=== PATIENT | male | born 1955 | race African-American/Black ===

== ENCOUNTER 2020-02-19 16:43 | Emergency (ER) | payer MEDICARE, OTHER ==
[~2020-02-19] VITALS: Ht 190.5 cm; Wt 90.7 kg
[2020-02-19] MEDS ORDERED: LIDOCAINE 1% HCL (LOCAL ANESTH.) INJ 20ML MDV IJ ONE (19:45)
[2020-02-19 21:26] VITALS: BP 133/78
== END 2020-02-19 22:34 | disposition home or self-care (01) ==
LOC: ER 16:43
DX: S91.012A Laceration without foreign body, left ankle, initial encounter (principal); I10 Essential (primary) hypertension; W26.9XXA Contact with unspecified sharp object(s), initial encounter; Y93.89 Activity, other specified; Y92.89 Other specified places as the place of occurrence of the external cause; Y99.8 Other external cause status
CPT/HCPCS: 12002; 73700; 99284; J2001

== ENCOUNTER 2020-02-21 12:58 | Emergency (ER) | payer MEDICARE ==
[~2020-02-21] VITALS: Ht 190.5 cm; Wt 90.7 kg
[2020-02-21 13:03] VITALS: BP 137/83
== END 2020-02-21 14:04 | disposition home or self-care (01) ==
LOC: ER 12:58
DX: S91.012D Laceration without foreign body, left ankle, subsequent encounter (principal); X58.XXXD Exposure to other specified factors, subsequent encounter

== ENCOUNTER 2020-02-29 10:03 | Emergency (ER) | payer MEDICARE ==
[~2020-02-29] VITALS: Ht 190.5 cm; Wt 90.7 kg
[2020-02-29 11:12] VITALS: BP 147/86
== END 2020-02-29 11:18 | disposition home or self-care (01) ==
LOC: ER 10:03
DX: S91.312D Laceration without foreign body, left foot, subsequent encounter (principal); I10 Essential (primary) hypertension; X58.XXXD Exposure to other specified factors, subsequent encounter

== ENCOUNTER 2020-03-07 08:36 | Emergency (ER) | payer MEDICARE ==
[~2020-03-07] VITALS: Ht 190.5 cm; Wt 90.7 kg
[2020-03-07 08:51] VITALS: BP 125/78
== END 2020-03-07 09:10 | disposition home or self-care (01) ==
LOC: ER 08:36
DX: S91.312A Laceration without foreign body, left foot, initial encounter (principal); X58.XXXA Exposure to other specified factors, initial encounter; Y93.89 Activity, other specified; Y92.89 Other specified places as the place of occurrence of the external cause; Y99.8 Other external cause status
CPT/HCPCS: 99281; J7030

== ENCOUNTER 2020-07-29 14:01 | Inpatient (IN) | payer MEDICARE, OTHER ==
[~2020-07-29] VITALS: Ht 190.5 cm; Wt 82.1 kg
[2020-07-29 15:03] LABS: Basophils # (auto) 0 10 ^3/uL (0-0.2); Basophils % (auto) 0.4 % (0.0-2.0); Eosinophils # (auto) 0.2 10 ^3/uL (0-0.8); Eosinophils % (auto) 2.8 % (0.0-7.0); Hematocrit 38.6 % (41.0-53.0); Hemoglobin 12.8 g/dL (13.5-17.5); Lymphocytes # (auto) 1.9 10 ^3/uL (0.4-5.4); Lymphocytes % (auto) 30.1 % (10.0-50.0); Mean Corpuscular Hgb Conc. 33.1 g/dL (32.0-36.0); Mean Corpuscular Volume 84.6 fL (80.0-100.0); Monocytes # (auto) 0.7 10 ^3/uL (0-1.3); Monocytes % (auto) 11.2 % (0.0-12.0); Neutrophils # (auto) 3.5 10 ^3/uL (1.6-8.6); Neutrophils % (auto) 55.5 % (37.0-80.0); Nucleated Red Blood Cells % 0.1 %; Platelet Count (auto) 237 10^3/uL (140-450); Red Blood Cells 4.57 10^6/uL (4.5-5.90); Red Cell Distribution Width 17.5 % (11.8-14.3); White Blood Cell 6.4 10^3/uL (4.4-10.8)
[2020-07-29 15:27] LABS: BUN/Creatinine Ratio 15.9; Calcium 8.4 mg/dL (8.5-10.1); Potassium 4.2 mmol/L (3.5-5.1)
[2020-07-29 15:30] LABS: Urine Bacteria NONE SEEN /hpf (None Seen); Urine Blood Negative /uL (Negative); Urine WBC 1 /hpf (0 - 3)
[2020-07-29 15:32] LABS: Bilirubin, Total 0.5 mg/dL (0.2-1.0)
[2020-07-29] MEDS ORDERED: FUROSEMIDE 20 MG/2 ML VIAL IV ONE (16:15)
[2020-07-29] MEDS ORDERED: ASPirin 81 mg TAB PO ONE (16:15)
[2020-07-29] MEDS ORDERED: ENOXAPARIN SOD 100 MG/1 ML SYRINGE SC ONE (16:15)
[2020-07-29] MEDS ORDERED: HYDROcodone-ACET 5/325MG TAB PO PRN (19:15)
[2020-07-29] MEDS ORDERED: NITROGLYCERIN 0.4 MG SL TAB SL PRN (19:15)
[2020-07-29] MEDS ORDERED: MORPHINE SULF INJ 2 MG/ML SYRINGE 1ML IV PRN ×2 (19:15)
[2020-07-29] MEDS ORDERED: ONDANSETRON HCL 4 MG/2 ML VIAL IV PRN (19:15)
[2020-07-29 20:59] LABS: Cholesterol 107 mg/dL (< 200)
[2020-07-29 21:02] LABS: HDL Cholesterol 34 mg/dL (40-59); LDL Cholesterol 70 mg/dL (< 100); Triglycerides 44 mg/dL (< 150)
[2020-07-29] MEDS: ATORVASTATIN 20 MG TAB PO SCH (22:22)
[2020-07-29] MEDS: METOPROLOL TARTRATE 25 MG TAB PO SCH (22:23)
[2020-07-30 07:45] LABS: BUN/Creatinine Ratio 16.5; Calcium 8.8 mg/dL (8.5-10.1); Potassium 3.9 mmol/L (3.5-5.1)
[2020-07-30] MEDS ORDERED: FUROSEMIDE 40 MG/4 ML VIAL IV SCH (10:00)
[2020-07-30] MEDS: ASPirin 81 mg TAB PO SCH (10:07)
[2020-07-30] MEDS: METOPROLOL TARTRATE 25 MG TAB PO SCH ×2 (10:08→22:09)
[2020-07-30] MEDS: PANTOPRAZOLE 40 MG TAB PO SCH (10:08)
[2020-07-30 11:05] LABS: INR 1.4 (0.9-1.15); Partial Thromboplastin Time 29.2 sec (23.0-31.2)
[2020-07-30 17:00] VITALS: BP 122/68
[2020-07-30] MEDS: FUROSEMIDE 40 MG/4 ML VIAL IV SCH (18:10)
[2020-07-30] MEDS ORDERED: METO25TA5 PO (19:11)
[2020-07-30] MEDS ORDERED: ASCO500C49 PO (19:11)
[2020-07-30] MEDS ORDERED: ATOR20TA PO (19:11)
[2020-07-30] MEDS ORDERED: ASPI-543 PO (19:11)
[2020-07-30 22:00] VITALS: BP 130/78
[2020-07-30] MEDS: ATORVASTATIN 20 MG TAB PO SCH (22:07)
[2020-07-31 05:00] VITALS: BP 136/73
[2020-07-31] MEDS: FUROSEMIDE 40 MG/4 ML VIAL IV SCH ×2 (05:30→17:04)
[2020-07-31 06:39] LABS: Calcium 8.9 mg/dL (8.5-10.1); Potassium 3.6 mmol/L (3.5-5.1)
[2020-07-31 06:42] LABS: BUN/Creatinine Ratio 18.9
[2020-07-31] MEDS: ASPirin 81 mg TAB PO SCH (09:47)
[2020-07-31] MEDS: METOPROLOL TARTRATE 25 MG TAB PO SCH ×3 (09:48→21:06)
[2020-07-31] MEDS: PANTOPRAZOLE 40 MG TAB PO SCH (09:49)
[2020-07-31] MEDS: ENOXAPARIN SOD 40 MG/0.4 ML SYRINGE SC SCH (10:00)
[2020-07-31] MEDS ORDERED: IOHEXOL 350 MG/ML 100ML IJ ONE ×2 (12:49→14:52)
[2020-07-31] MEDS ORDERED: LIDOCAINE 2%HCL (LOCAL ANESTH.) INJ 20ML MDV ONE (12:49)
[2020-07-31] MEDS ORDERED: fentaNYL CITRATE 100 MCG/2 ML VL ONE (13:39)
[2020-07-31] MEDS ORDERED: ANGIOMAX 250 MG VIAL IV ONE (13:39)
[2020-07-31] MEDS ORDERED: SODIUM CHL 0.9% 50 ML ONE (13:40)
[2020-07-31] MEDS ORDERED: MIDAZOLAM HCL 1MG/1ML-2 ML VIAL ONE ×2 (13:40→14:47)
[2020-07-31] MEDS ORDERED: TICAGRELOR 90 MG TAB ONE (15:14)
[2020-07-31 16:50] VITALS: BP 158/111
[2020-07-31 17:10] VITALS: BP 154/93
[2020-07-31 17:40] VITALS: BP 154/100
[2020-07-31] MEDS: SACUBITRIL-VALSARTAN 24mg/26mg TAB PO SCH (21:05)
[2020-07-31] MEDS: ATORVASTATIN 20 MG TAB PO SCH (21:05)
[2020-07-31] MEDS: TICAGRELOR 90 MG TAB PO SCH (21:17)
[2020-08-01] VITALS: BP 119/79
[2020-08-01 01:00] VITALS: BP 114/76
[2020-08-01 05:00] VITALS: BP 130/78
[2020-08-01] MEDS: FUROSEMIDE 40 MG/4 ML VIAL IV SCH ×2 (05:53→18:00)
[2020-08-01 08:00] VITALS: BP 104/71
[2020-08-01 08:00] LABS: Basophils # (auto) 0 10 ^3/uL (0-0.2); Basophils % (auto) 0.4 % (0.0-2.0); Eosinophils # (auto) 0.2 10 ^3/uL (0-0.8); Eosinophils % (auto) 2.4 % (0.0-7.0); Hematocrit 45.1 % (41.0-53.0); Hemoglobin 15.5 g/dL (13.5-17.5); Lymphocytes # (auto) 2.3 10 ^3/uL (0.4-5.4); Lymphocytes % (auto) 29.9 % (10.0-50.0); Mean Corpuscular Hemoglobin 28.8 pg (28.0-32.0); Mean Corpuscular Hgb Conc. 34.3 g/dL (32.0-36.0); Mean Corpuscular Volume 83.9 fL (80.0-100.0); Monocytes % (auto) 12.9 % (0.0-12.0); Neutrophils # (auto) 4.3 10 ^3/uL (1.6-8.6); Neutrophils % (auto) 54.4 % (37.0-80.0); Nucleated Red Blood Cells % 0.1 %; Platelet Count (auto) 294 10^3/uL (140-450); Red Blood Cells 5.38 10^6/uL (4.5-5.90); Red Cell Distribution Width 17.1 % (11.8-14.3); White Blood Cell 7.9 10^3/uL (4.4-10.8)
[2020-08-01 08:14] LABS: BUN/Creatinine Ratio 18.2; Calcium 8.7 mg/dL (8.5-10.1); Potassium 3.3 mmol/L (3.5-5.1)
[2020-08-01] MEDS ORDERED: POTASSIUM CHL 20 Meq TABLET PO ONE (08:45)
[2020-08-01] MEDS ORDERED: POLYETHYLENE GLYCOL 17 GM PWDR PO SCH (10:00)
[2020-08-01] MEDS: PANTOPRAZOLE 40 MG TAB PO SCH (10:22)
[2020-08-01] MEDS: SACUBITRIL-VALSARTAN 24mg/26mg TAB PO SCH (10:22)
[2020-08-01] MEDS: TICAGRELOR 90 MG TAB PO SCH (10:22)
[2020-08-01] MEDS: METOPROLOL TARTRATE 25 MG TAB PO SCH (10:23)
[2020-08-01] MEDS: ASPirin 81 mg TAB PO SCH (10:23)
[2020-08-01] MEDS: ENOXAPARIN SOD 40 MG/0.4 ML SYRINGE SC SCH (10:23)
[2020-08-01 16:00] VITALS: BP 103/63
[2020-08-01 16:17] VITALS: BP 156/96
== END 2020-08-01 18:00 | disposition home or self-care (01) | DRG 246 ==
LOC: ER 14:01 → TELE 14:02 → TELE-EAST 07-30 18:34
PROVIDERS: ADMIT Nurse Practitioner Acute Care; ATTEND Internal Medicine
PROC: 4A023N6 Measurement of Cardiac Sampling and Pressure, Right Heart, Percutaneous Approach (ICD-10-PCS; principal; 2020-07-31)
PROC: 027135Z Dilation of Coronary Artery, Two Arteries with Two Drug-eluting Intraluminal Devices, Percutaneous Approach (ICD-10-PCS; 2020-07-31)
PROC: B2111ZZ Fluoroscopy of Multiple Coronary Arteries using Low Osmolar Contrast (ICD-10-PCS; 2020-07-31)
PROC: B2141ZZ Fluoroscopy of Right Heart using Low Osmolar Contrast (ICD-10-PCS; 2020-07-31)
DX: I21.4 Non-ST elevation (NSTEMI) myocardial infarction (principal); I50.43 Acute on chronic combined systolic (congestive) and diastolic (congestive) heart failure; E44.0 Moderate protein-calorie malnutrition; I13.0 Hypertensive heart and chronic kidney disease with heart failure and stage 1 through stage 4 chronic kidney disease, or unspecified chronic kidney disease; N18.30 Chronic kidney disease, stage 3 unspecified; E78.5 Hyperlipidemia, unspecified; I25.5 Ischemic cardiomyopathy; Z98.61 Coronary angioplasty status; Z68.22 Body mass index [BMI] 22.0-22.9, adult; Z20.822 Contact with and (suspected) exposure to COVID-19
CPT/HCPCS: 36415; 71045; 80048; 80053; 80061; 81001; 82306; 83036; 83880; 84443; 84484; 85025; 85610; 85730; 87426; 93005; 93306; 93971; 96374; 96375; 99152; 99153; C1751; C1874; C1887; G0378; J2250

== ENCOUNTER 2020-08-15 11:15 | Emergency (ER) | payer OTHER ==
[~2020-08-15] VITALS: Ht 190.5 cm; Wt 86.6 kg
[~2020-08-15 11:15] MED LIST: ASCO500C49 PO; ASPI-543 PO; ATOR20TA PO; METO25TA5 PO
[2020-08-15 11:54] LABS: Basophils # (auto) 0 10 ^3/uL (0-0.2); Basophils % (auto) 0.7 % (0.0-2.0); Eosinophils # (auto) 0.3 10 ^3/uL (0-0.8); Eosinophils % (auto) 4.1 % (0.0-7.0); Hemoglobin 14.5 g/dL (13.5-17.5); Lymphocytes # (auto) 2.4 10 ^3/uL (0.4-5.4); Lymphocytes % (auto) 37.1 % (10.0-50.0); Mean Corpuscular Hemoglobin 27.9 pg (28.0-32.0); Mean Corpuscular Volume 84.6 fL (80.0-100.0); Monocytes # (auto) 0.6 10 ^3/uL (0-1.3); Monocytes % (auto) 8.9 % (0.0-12.0); Neutrophils # (auto) 3.2 10 ^3/uL (1.6-8.6); Neutrophils % (auto) 49.2 % (37.0-80.0); Nucleated Red Blood Cells % 0.2 %; Platelet Count (auto) 245 10^3/uL (140-450); Red Cell Distribution Width 16.4 % (11.8-14.3); White Blood Cell 6.6 10^3/uL (4.4-10.8)
[2020-08-15 12:10] LABS: INR 1.29 (0.9-1.15); Partial Thromboplastin Time 26.7 sec (23.0-31.2)
[2020-08-15 12:13] LABS: Albumin 3.4 g/dL (3.4-5.0); Calcium 9.2 mg/dL (8.5-10.1); Potassium 4.2 mmol/L (3.5-5.1)
[2020-08-15 12:21] LABS: BUN/Creatinine Ratio 14.6; Bilirubin, Total 0.4 mg/dL (0.2-1.0); Total Protein 8.2 g/dL (6.4-8.2)
[2020-08-15 13:02] VITALS: BP 157/97
== END 2020-08-15 13:03 | disposition home or self-care (01) ==
LOC: ER 11:15
DX: R04.0 Epistaxis (principal); I10 Essential (primary) hypertension; Z79.82 Long term (current) use of aspirin
CPT/HCPCS: 30901; 36415; 71045; 80053; 84484; 85025; 85610; 85730

== ENCOUNTER → 2020-10-24 | Outpatient (CLI) | payer OTHER | END | disposition home or self-care (01) | LOC: Rad HDHVI 11:01 | PROVIDERS: ATTEND Internal Medicine Cardiovascular Disease | DX: I65.21 Occlusion and stenosis of right carotid artery (principal); I10 Essential (primary) hypertension; E78.5 Hyperlipidemia, unspecified | CPT/HCPCS: 93880 ==

== ENCOUNTER → 2020-10-28 | Outpatient (CLI) | payer OTHER ==
[2020-10-28 12:05] LABS: Urine Blood 1+ /uL (Negative); Urine Specific Gravity 1.024 (1.001-1.035)
[2020-10-28 12:09] LABS: Basophils # (auto) 0 10 ^3/uL (0-0.2); Eosinophils # (auto) 0.1 10 ^3/uL (0-0.8); Hemoglobin 13.6 g/dL (13.5-17.5); Monocytes # (auto) 0.6 10 ^3/uL (0-1.3); Platelet Count (auto) 247 10^3/uL (140-450)
[2020-10-28 12:12] LABS: Basophils % (auto) 0.6 % (0.0-2.0); Eosinophils % (auto) 2.1 % (0.0-7.0); Hematocrit 40.7 % (41.0-53.0); Lymphocytes % (auto) 18.8 % (10.0-50.0); Mean Corpuscular Hemoglobin 27.1 pg (28.0-32.0); Mean Corpuscular Hgb Conc. 33.3 g/dL (32.0-36.0); Mean Corpuscular Volume 81.1 fL (80.0-100.0); Monocytes % (auto) 11.1 % (0.0-12.0); Neutrophils # (auto) 3.6 10 ^3/uL (1.6-8.6); Neutrophils % (auto) 67.4 % (37.0-80.0); Nucleated Red Blood Cells % 0.1 %; Red Blood Cells 5.02 10^6/uL (4.5-5.90); Red Cell Distribution Width 15.2 % (11.8-14.3); White Blood Cell 5.4 10^3/uL (4.4-10.8)
[2020-10-28 12:30] LABS: Free T4 (Free Thyroxine) 1.55 ng/dL (0.89-1.76)
[2020-10-28 12:31] LABS: Prostate Specific Antigen 0.75 ng/mL (0.0-4.0)
[2020-10-28 12:37] LABS: Albumin 3.5 g/dL (3.4-5.0); BUN/Creatinine Ratio 14.1; Bilirubin, Total 1.2 mg/dL (0.2-1.0); Calcium 8.9 mg/dL (8.5-10.1); Total Protein 8.4 g/dL (6.4-8.2)
== END | disposition home or self-care (01) ==
LOC: LAB 08:14
PROVIDERS: ATTEND Internal Medicine Cardiovascular Disease
DX: C61 Malignant neoplasm of prostate (principal); I10 Essential (primary) hypertension; E11.9 Type 2 diabetes mellitus without complications; D51.3 Other dietary vitamin B12 deficiency anemia; D64.9 Anemia, unspecified; E55.9 Vitamin D deficiency, unspecified; R00.2 Palpitations; R53.1 Weakness; R30.0 Dysuria
CPT/HCPCS: 36415; 80053; 80061; 81003; 82306; 82607; 83036; 84153; 84403; 84439; 84443; 85025

== ENCOUNTER → 2020-11-06 | Outpatient (CLI) | payer OTHER ==
[~2020-11-06] VITALS: Ht 190.5 cm; Wt 81.6 kg
== END | disposition home or self-care (01) ==
LOC: Rad HDHVI 08:56
PROVIDERS: ATTEND Internal Medicine Cardiovascular Disease
DX: I11.0 Hypertensive heart disease with heart failure (principal); I50.23 Acute on chronic systolic (congestive) heart failure; I25.10 Atherosclerotic heart disease of native coronary artery without angina pectoris; I25.5 Ischemic cardiomyopathy; E78.5 Hyperlipidemia, unspecified
CPT/HCPCS: 78452; 93017; 96374; A9500

== ENCOUNTER → 2020-11-13 | Outpatient (CLI) | payer OTHER | END | disposition home or self-care (01) | LOC: XYW 09:49 | PROVIDERS: ATTEND Internal Medicine | DX: I08.2 Rheumatic disorders of both aortic and tricuspid valves (principal); I50.22 Chronic systolic (congestive) heart failure; Z95.5 Presence of coronary angioplasty implant and graft | CPT/HCPCS: 93306 ==

== ENCOUNTER 2020-12-11 13:40 | Emergency (ER) | payer OTHER ==
[~2020-12-11] VITALS: Ht 190.5 cm; Wt 81.6 kg
[2020-12-11 14:09] VITALS: BP 141/88
[2020-12-11] MEDS ORDERED: methylPREDNISolone SOD SUCC 125 MG/2 ML VL IM ONE (15:45)
[2020-12-11] MEDS ORDERED: KETOROLAC TROMETH 60MG/2ML VIAL IM ONE (15:45)
== END 2020-12-11 16:31 | disposition home or self-care (01) ==
LOC: ER 13:40
DX: M17.11 Unilateral primary osteoarthritis, right knee (principal); M06.831 Other specified rheumatoid arthritis, right wrist; I10 Essential (primary) hypertension; Z95.1 Presence of aortocoronary bypass graft; Z86.73 Personal history of transient ischemic attack (TIA), and cerebral infarction without residual deficits
CPT/HCPCS: 73110; 73562; 96372; 99284; J1885; J2930

== ENCOUNTER → 2021-06-04 | Outpatient (CLI) | payer OTHER | END | disposition home or self-care (01) | LOC: XY 08:54 | PROVIDERS: ATTEND Internal Medicine | DX: I65.23 Occlusion and stenosis of bilateral carotid arteries (principal); Z95.5 Presence of coronary angioplasty implant and graft | CPT/HCPCS: 93886 ==

== ENCOUNTER → 2021-10-26 | Outpatient (CLI) | payer OTHER | END | disposition home or self-care (01) | LOC: Rad HDHVI 14:03 | PROVIDERS: ATTEND Internal Medicine Cardiovascular Disease | DX: I65.22 Occlusion and stenosis of left carotid artery (principal); I25.5 Ischemic cardiomyopathy; I10 Essential (primary) hypertension | CPT/HCPCS: 93880 ==

== ENCOUNTER → 2021-11-04 | Outpatient (CLI) | payer OTHER ==
[~2021-11-04] VITALS: Ht 190.5 cm; Wt 81.6 kg
== END | disposition home or self-care (01) ==
LOC: Rad HDHVI 13:44
PROVIDERS: ATTEND Internal Medicine Cardiovascular Disease
DX: I25.10 Atherosclerotic heart disease of native coronary artery without angina pectoris (principal); R06.02 Shortness of breath; I48.0 Paroxysmal atrial fibrillation; I11.0 Hypertensive heart disease with heart failure; I50.22 Chronic systolic (congestive) heart failure; E78.2 Mixed hyperlipidemia; I25.5 Ischemic cardiomyopathy
CPT/HCPCS: 78452; 93017; 96374; A9500

== ENCOUNTER 2022-02-16 13:00 | Outpatient (CLI) | payer OTHER, MEDICAID ==
[~2022-02-16] VITALS: Ht 190.5 cm; Wt 83.9 kg
[~2022-02-16 13:00] MED LIST changes: -APIX2.5T PO; -FURO1TAB31 PO; -METO-535 PO; -PANT40T PO; -SACU1TAB PO
[2022-02-16] MEDS ORDERED: METO-535 PO (13:53)
[2022-02-16] MEDS ORDERED: APIX2.5T PO (13:53)
[2022-02-16] MEDS ORDERED: PANT40T PO (13:53)
[2022-02-16] MEDS ORDERED: SACU1TAB PO (13:53)
[2022-02-16] MEDS ORDERED: FURO1TAB31 PO (13:53)
== END 2022-02-16 13:35 | disposition home or self-care (01) ==
LOC: LAB 13:00 → EDSTATUS 02-18 14:30
PROVIDERS: ATTEND Internal Medicine Cardiovascular Disease
DX: Z20.822 Contact with and (suspected) exposure to COVID-19 (principal)

== ENCOUNTER → 2022-02-16 | Outpatient (CLI) | payer OTHER ==
[~2022-02-16] MED LIST changes: +APIX2.5T PO; +FURO1TAB31 PO; +METO-535 PO; +PANT40T PO; +SACU1TAB PO
[2022-02-16 11:24] VITALS: BP 126/72
[2022-02-16 11:44] VITALS: BP 128/75
[2022-02-16 16:34] LABS: BUN/Creatinine Ratio 12.4; Calcium 8.5 mg/dL (8.5-10.1); Potassium 3.6 mmol/L (3.5-5.1)
[2022-02-16 16:47] LABS: Basophils # (auto) 0 10 ^3/uL (0-0.2); Eosinophils # (auto) 0.2 10 ^3/uL (0-0.8); Mean Corpuscular Hemoglobin 26.3 pg (28.0-32.0); Monocytes # (auto) 0.7 10 ^3/uL (0-1.3); Red Blood Cells 3.98 10^6/uL (4.5-5.90); White Blood Cell 7.3 10^3/uL (4.4-10.8)
[2022-02-16 16:51] LABS: Basophils % (auto) 0.5 % (0.0-2.0); Eosinophils % (auto) 2.7 % (0.0-7.0); Hematocrit 32.6 % (41.0-53.0); Hemoglobin 10.4 g/dL (13.5-17.5); Lymphocytes % (auto) 27.4 % (10.0-50.0); Mean Corpuscular Volume 82.1 fL (80.0-100.0); Monocytes % (auto) 9.4 % (0.0-12.0); Neutrophils # (auto) 4.4 10 ^3/uL (1.6-8.6); Nucleated Red Blood Cells % 0.1 %; Red Cell Distribution Width 14.8 % (11.8-14.3)
[2022-02-16 17:03] LABS: INR 1.23 (0.9-1.15); Partial Thromboplastin Time 30.3 sec (24.6-33.4)
== END | disposition home or self-care (01) ==
LOC: Rad HDHVI 11:03
PROVIDERS: ATTEND Internal Medicine Cardiovascular Disease
DX: Z01.812 Encounter for preprocedural laboratory examination (principal); M47.814 Spondylosis without myelopathy or radiculopathy, thoracic region; R79.1 Abnormal coagulation profile; I25.10 Atherosclerotic heart disease of native coronary artery without angina pectoris; I10 Essential (primary) hypertension; I70.0 Atherosclerosis of aorta
CPT/HCPCS: 36415; 71046; 80048; 85025; 85610; 85730; 93005; G0463

== ENCOUNTER → 2022-05-11 | Outpatient (CLI) | payer OTHER ==
[~2022-05-11] MED LIST changes: +APIX2.5T PO; -ASPI-543 PO; -ATOR20TA PO; +FURO1TAB31 PO; +METO-535 PO; -METO25TA5 PO; +PANT40T PO; +SACU1TAB PO
[2022-05-11 13:00] LABS: Eosinophils # (auto) 0.2 10 ^3/uL (0-0.8); Hemoglobin 12.4 g/dL (13.5-17.5); Neutrophils # (auto) 3.5 10 ^3/uL (1.6-8.6)
[2022-05-11 13:02] LABS: Basophils # (auto) 0 10 ^3/uL (0-0.2); Basophils % (auto) 0.6 % (0.0-2.0); Hematocrit 39.6 % (41.0-53.0); Lymphocytes # (auto) 1.5 10 ^3/uL (0.4-5.4); Mean Corpuscular Hemoglobin 24.5 pg (28.0-32.0); Mean Corpuscular Hgb Conc. 31.2 g/dL (32.0-36.0); Mean Corpuscular Volume 78.7 fL (80.0-100.0); Monocytes # (auto) 0.7 10 ^3/uL (0-1.3); Monocytes % (auto) 11.2 % (0.0-12.0); Neutrophils % (auto) 59.2 % (37.0-80.0); Nucleated Red Blood Cells % 0.1 %; Red Blood Cells 5.03 10^6/uL (4.5-5.90); Red Cell Distribution Width 17.9 % (11.8-14.3); Urine Blood 2+ /uL (Negative); Urine Specific Gravity 1.031 (1.001-1.035)
[2022-05-11 13:32] LABS: Free T4 (Free Thyroxine) 1.57 ng/dL (0.89-1.76)
[2022-05-11 13:33] LABS: Albumin 3.4 g/dL (3.4-5.0); BUN/Creatinine Ratio 12.7; Bilirubin, Total 0.7 mg/dL (0.2-1.0); Calcium 8.6 mg/dL (8.5-10.1); Potassium 4.1 mmol/L (3.5-5.1); Prostate Specific Antigen 1.15 ng/mL (0.0-4.0); Total Protein 7.1 g/dL (6.4-8.2)
== END | disposition home or self-care (01) ==
LOC: LAB 08:32
PROVIDERS: ATTEND Internal Medicine Cardiovascular Disease
DX: C61 Malignant neoplasm of prostate (principal); D51.3 Other dietary vitamin B12 deficiency anemia; R00.2 Palpitations; E55.9 Vitamin D deficiency, unspecified; E11.9 Type 2 diabetes mellitus without complications; I10 Essential (primary) hypertension; R53.1 Weakness; R30.0 Dysuria
CPT/HCPCS: 36415; 80053; 80061; 81003; 82306; 82607; 83036; 84153; 84403; 84439; 84443; 85025

== ENCOUNTER → 2022-09-15 | Outpatient (CLI) | payer MEDICARE, MEDICAID | END | disposition home or self-care (01) | LOC: Rad HDHVI 10:07 | PROVIDERS: ATTEND Internal Medicine Cardiovascular Disease | DX: I08.8 Other rheumatic multiple valve diseases (principal); R06.02 Shortness of breath; I10 Essential (primary) hypertension | CPT/HCPCS: 93306 ==

== ENCOUNTER 2023-02-08 12:24 | Emergency (ER) | payer MEDICARE, MEDICAID ==
[~2023-02-08] VITALS: Ht 190.5 cm; Wt 86.1 kg
[2023-02-08 14:50] LABS: Basophils # (auto) 0 10 ^3/uL (0-0.2); Basophils % (auto) 0.6 % (0.0-2.0); Eosinophils # (auto) 0.2 10 ^3/uL (0-0.8); Eosinophils % (auto) 3.1 % (0.0-7.0); Hematocrit 40.7 % (41.0-53.0); Hemoglobin 13.4 g/dL (13.5-17.5); Lymphocytes # (auto) 2.5 10 ^3/uL (0.4-5.4); Lymphocytes % (auto) 43.2 % (10.0-50.0); Mean Corpuscular Hgb Conc. 32.9 g/dL (32.0-36.0); Monocytes # (auto) 0.6 10 ^3/uL (0-1.3); Monocytes % (auto) 10.7 % (0.0-12.0); Neutrophils # (auto) 2.5 10 ^3/uL (1.6-8.6); Neutrophils % (auto) 42.4 % (37.0-80.0); Nucleated Red Blood Cells % 0.2 %; Red Blood Cells 4.97 10^6/uL (4.5-5.90); Red Cell Distribution Width 15.1 % (11.8-14.3); White Blood Cell 5.9 10^3/uL (4.4-10.8)
[2023-02-08 14:53] LABS: Urine WBC None Seen /hpf (0 - 3)
[2023-02-08 15:11] LABS: Albumin 4.2 g/dL (3.2-4.8); Alkaline Phosphatase 97 U/L (46-116); Anion Gap 5.7 (5-15); Aspartate Aminotransferase < 8 U/L (13-40); Blood Urea Nitrogen 15 mg/dL (9-23); CRP High Sensitivity 0.81 mg/dL (<1.0); Calcium 8.9 mg/dL (8.5-10.1); Carbon Dioxide 28.3 mmol/L (20-30); Chloride 108 mmol/L (98-107); Glucose 79 mg/dL (74-106); Potassium 3.9 mmol/L (3.5-5.1); Sodium 142 mmol/L (136-145)
[2023-02-08 15:12] LABS: Bilirubin, Total 0.4 mg/dL (0.2-1.0); Total Protein 7.3 g/dL (5.7-8.2)
[2023-02-08 15:15] LABS: Urine Bacteria NONE SEEN /hpf (None Seen); Urine Blood TRACE /uL (Negative); Urine Clarity Clear (Clear); Urine Color Colorless (Yellow); Urine Hyaline Cast FEW /lpf (0 - 2); Urine Protein, UAD Negative (Negative); Urine Urobilinogen Normal (Negative)
[2023-02-08 15:31] LABS: Alanine Aminotransferase < 9 U/L (7-40)
[2023-02-08 16:37] LABS: Erythrocyte Sedimentation Rate 18 mm/hr (0-20)
[2023-02-08] MEDS ORDERED: CEPH500C PO (20:34)
[2023-02-08 22:12] VITALS: BP 157/88; PULSE 67; RESP 18; TEMP 98.6; O2SAT 97
== END 2023-02-08 22:13 | disposition home or self-care (01) ==
LOC: ER 12:24
DX: M25.572 Pain in left ankle and joints of left foot (principal); I10 Essential (primary) hypertension; I25.10 Atherosclerotic heart disease of native coronary artery without angina pectoris; Z86.73 Personal history of transient ischemic attack (TIA), and cerebral infarction without residual deficits; Z95.1 Presence of aortocoronary bypass graft; Z79.899 Other long term (current) drug therapy
CPT/HCPCS: 36415; 73701; 80053; 81001; 83605; 83880; 84484; 85025; 85652; 86141; 93971; 99285; Q9967

== ENCOUNTER 2023-09-18 11:50 | Inpatient (IN) | payer OTHER, MEDICAID ==
[~2023-09-18] VITALS: Ht 190.5 cm; Wt 88.1 kg
[~2023-09-18 11:50] MED LIST changes: +CEPH500C PO
[2023-09-18 12:18] VITALS: PULSE 161; RESP 20; O2SAT 98
[2023-09-18] MEDS: ADENOSINE 6 MG/2 ML INJ IV ONE (12:21)
[2023-09-18 12:25] LABS: Basophils # (auto) 0 10 ^3/uL (0-0.2); Eosinophils # (auto) 0.1 10 ^3/uL (0-0.8); Mean Corpuscular Hemoglobin 26.1 pg (28.0-32.0); Mean Corpuscular Hgb Conc. 32.1 g/dL (32.0-36.0); Monocytes # (auto) 0.5 10 ^3/uL (0-1.3); White Blood Cell 5.9 10^3/uL (4.4-10.8)
[2023-09-18] MEDS: SODIUM CHLORIDE 0.9% 500 ML IVB ONE (12:25)
[2023-09-18] MEDS: ONDANSETRON HCL 4 MG/2 ML VIAL IV ONE (12:25)
[2023-09-18 12:27] LABS: Basophils % (auto) 0.7 % (0.0-2.0); Eosinophils % (auto) 1.7 % (0.0-7.0); Hematocrit 41.4 % (41.0-53.0); Hemoglobin 13.3 g/dL (13.5-17.5); Lymphocytes # (auto) 1.8 10 ^3/uL (0.4-5.4); Lymphocytes % (auto) 30.3 % (10.0-50.0); Mean Corpuscular Volume 81.4 fL (80.0-100.0); Monocytes % (auto) 8.9 % (0.0-12.0); Neutrophils # (auto) 3.4 10 ^3/uL (1.6-8.6); Neutrophils % (auto) 58.4 % (37.0-80.0); Nucleated Red Blood Cells % 0.1 %; Red Blood Cells 5.09 10^6/uL (4.5-5.90); Red Cell Distribution Width 15.2 % (11.8-14.3)
[2023-09-18] MEDS: MIDAZOLAM HCL 5 MG/ML-1ML VIAL IV ONE (12:28)
[2023-09-18] MEDS: MIDAZOLAM HCL 5 MG/ML-1ML VIAL ONE (12:39)
[2023-09-18] MEDS: ENOXAPARIN SOD 100 MG/1 ML SYRINGE SC ONE (12:44)
[2023-09-18 12:49] LABS: Alanine Aminotransferase 14 U/L (7-40); Albumin 4.1 g/dL (3.2-4.8); Alkaline Phosphatase 104 U/L (46-116); Anion Gap 11 (5-15); Aspartate Aminotransferase 15 U/L (13-40); BUN/Creatinine Ratio 14.6 (10.0-20.0); Bilirubin, Total 0.8 mg/dL (0.2-1.0); Blood Urea Nitrogen 13 mg/dL (9-23); Calcium 9.2 mg/dL (8.7-10.4); Carbon Dioxide 23 mmol/L (20-30); Chloride 111 mmol/L (98-107); Glucose 77 mg/dL (74-106); Lipase 33 U/L (12-53); Potassium 3.6 mmol/L (3.5-5.1); Sodium 145 mmol/L (136-145)
[2023-09-18 12:50] LABS: Total Protein 7.7 g/dL (5.7-8.2)
[2023-09-18] MEDS: dilTIAZem 120MG ER CAP PO ONE (13:03)
[2023-09-18] MEDS: dilTIAZem 25 MG/5 ML VIAL IV ONE (13:06)
[2023-09-18] MEDS ORDERED: ACETAMINOPHEN 325 MG TAB PO PRN (13:30)
[2023-09-18] MEDS ORDERED: NITROGLYCERIN 0.4 MG SL TAB SL PRN (13:30)
[2023-09-18] MEDS ORDERED: MORPHINE SULFATE 4 MG/ML SYR/VIAL IV PRN (13:30)
[2023-09-18 13:53] LABS: INR 1.46 (0.9-1.15)
[2023-09-18] MEDS: dilTIAZem 125mg/125ml BAG KIT 125 ML IV ONE (15:01)
[2023-09-18 15:39] LABS: INR 1.58 (0.9-1.15); Prothrombin Time 16.1 sec (9.3-11.8)
[2023-09-18] MEDS: SODIUM CHLORIDE 0.9% 1,000 ML IV ONE (16:54)
[2023-09-18 17:17] LABS: Urine Bacteria NONE SEEN /hpf (None Seen); Urine Blood 2+ /uL (Negative); Urine Clarity Clear (Clear); Urine Color Yellow (Yellow); Urine Mucus FEW (None Seen); Urine Protein, UAD 1+ (Negative); Urine Specific Gravity 1.022 (1.001-1.035); Urine WBC 1 /hpf (0 - 3)
[2023-09-18 17:26] LABS: Amphetamine Screen, Urine Neg (NEGATIVE); Barbiturate Scree,Urine Neg (NEGATIVE); Benzodiazephine Screen, Urine Pos (NEGATIVE); Cannabinoid Screen, Urine Neg (NEGATIVE); Cocaine Screen, Urine Neg (NEGATIVE); Opiate Scree,Urine Neg (NEGATIVE); Phencyclidine Screen, Urine Neg (NEGATIVE)
[2023-09-18 19:20] VITALS: PULSE 74; RESP 16; O2SAT 97
[2023-09-18] MEDS: ONDANSETRON HCL 4 MG/2 ML VIAL IV PRN (20:24)
[2023-09-18] MEDS: PANTOPRAZOLE 40 MG/10 ML VIAL INJ IV ONE (20:53)
[2023-09-18] MEDS: APIXABAN 2.5 MG TAB PO SCH (22:14)
[2023-09-18] MEDS: ATORVASTATIN 20 MG TAB PO SCH (22:15)
[2023-09-18] MEDS: SACUBITRIL-VALSARTAN 24mg/26mg TAB PO SCH (22:18)
[2023-09-19 05:23] LABS: Basophils # (auto) 0 10 ^3/uL (0-0.2); Basophils % (auto) 0.3 % (0.0-2.0); Eosinophils # (auto) 0.2 10 ^3/uL (0-0.8); Eosinophils % (auto) 2.7 % (0.0-7.0); Hematocrit 37.2 % (41.0-53.0); Hemoglobin 12.2 g/dL (13.5-17.5); Lymphocytes # (auto) 2.2 10 ^3/uL (0.4-5.4); Lymphocytes % (auto) 34.7 % (10.0-50.0); Mean Corpuscular Hemoglobin 26.8 pg (28.0-32.0); Mean Corpuscular Hgb Conc. 32.9 g/dL (32.0-36.0); Mean Corpuscular Volume 81.3 fL (80.0-100.0); Monocytes # (auto) 0.7 10 ^3/uL (0-1.3); Monocytes % (auto) 10.5 % (0.0-12.0); Neutrophils # (auto) 3.2 10 ^3/uL (1.6-8.6); Neutrophils % (auto) 51.8 % (37.0-80.0); Red Blood Cells 4.57 10^6/uL (4.5-5.90); White Blood Cell 6.3 10^3/uL (4.4-10.8)
[2023-09-19 05:43] LABS: Alanine Aminotransferase 11 U/L (7-40); Albumin 3.7 g/dL (3.2-4.8); Alkaline Phosphatase 86 U/L (46-116); Anion Gap 8 (5-15); Aspartate Aminotransferase 14 U/L (13-40); BUN/Creatinine Ratio 13.6 (10.0-20.0); Blood Urea Nitrogen 11 mg/dL (9-23); Calcium 8.5 mg/dL (8.5-10.1); Carbon Dioxide 24 mmol/L (20-30); Chloride 109 mmol/L (98-107); Cholesterol 138 mg/dL (< 200); Glucose 94 mg/dL (74-106); HDL Cholesterol 31 mg/dL (40-59); LDL Cholesterol 99 mg/dL (< 100); Potassium 3.5 mmol/L (3.5-5.1); Sodium 141 mmol/L (136-145); Triglycerides 63 mg/dL (< 150)
[2023-09-19 05:44] LABS: Bilirubin, Total 0.6 mg/dL (0.2-1.0); Total Protein 6.3 g/dL (5.7-8.2)
[2023-09-19 08:00] VITALS: PULSE 71; RESP 16; O2SAT 95
[2023-09-19] MEDS: ASPirin 81 mg TAB PO SCH (08:44)
[2023-09-19] MEDS: DOCUSATE SOD 100 MG CAP PO SCH (08:45)
[2023-09-19] MEDS: PANTOPRAZOLE 40 MG/10 ML VIAL INJ IV SCH (08:45)
[2023-09-19] MEDS: FUROSEMIDE 40 MG/4 ML VIAL IV SCH (08:45)
[2023-09-19] MEDS ORDERED: PANTOPRAZOLE 40 MG/10 ML VIAL INJ IV SCH (10:00)
[2023-09-19 11:05] VITALS: BP 117/70; PULSE 77; RESP 18; TEMP 97.8; O2SAT 92
[2023-09-19 12:38] VITALS: BP 117/70; PULSE 77; RESP 18; TEMP 97.8; O2SAT 92
[2023-09-19 17:00] VITALS: BP 131/77; PULSE 71; RESP 18; TEMP 97.6; O2SAT 91
[2023-09-19 20:00] VITALS: PULSE 60
[2023-09-19 21:00] VITALS: BP 118/72; PULSE 78; RESP 18; TEMP 97.8; O2SAT 93
[2023-09-19] MEDS: SACUBITRIL-VALSARTAN 24mg/26mg TAB PO SCH (21:22)
[2023-09-19] MEDS: METOPROLOL TARTRATE 25 MG TAB PO SCH (21:24)
[2023-09-20] VITALS (8 sets, daily range): BP systolic 101–134; BP diastolic 56–78; PULSE 52–89; RESP 16–20; TEMP 97.7–98.2; O2SAT 93–98
[2023-09-20 06:25] LABS: Anion Gap 5 (5-15); Carbon Dioxide 27 mmol/L (20-30); Chloride 108 mmol/L (98-107); Potassium 3.7 mmol/L (3.5-5.1); Sodium 140 mmol/L (136-145)
[2023-09-20 06:27] LABS: Calcium 8.9 mg/dL (8.7-10.4)
[2023-09-20 06:32] LABS: Blood Urea Nitrogen 13 mg/dL (9-23); Glucose 91 mg/dL (74-106)
[2023-09-20] MEDS: FUROSEMIDE 40 MG TAB PO SCH (10:02)
[2023-09-20] MEDS: KETOROLAC TROMETH 30 MG/ML 1ML VIAL IV ONE (12:27)
[2023-09-21 01:00] VITALS: BP 111/60; PULSE 76; RESP 16; TEMP 97.9; O2SAT 97
[2023-09-21 05:00] VITALS: BP 113/58; PULSE 78; RESP 16; TEMP 98; O2SAT 96
[2023-09-21 07:29] LABS: Chloride 107 mmol/L (98-107); Potassium 3.7 mmol/L (3.5-5.1); Sodium 139 mmol/L (136-145)
[2023-09-21 07:30] LABS: Anion Gap 4 (5-15); Calcium 8.6 mg/dL (8.7-10.4); Carbon Dioxide 28 mmol/L (20-30)
[2023-09-21 07:34] LABS: Uric Acid 6.4 mg/dL (3.7-9.2)
[2023-09-21 07:35] LABS: BUN/Creatinine Ratio 18.1 (10.0-20.0); Blood Urea Nitrogen 17 mg/dL (9-23); Glucose 86 mg/dL (74-106)
[2023-09-21 08:00] VITALS: PULSE 67; PULSE 77; O2SAT 97
[2023-09-21 09:55] VITALS: BP 121/66; PULSE 70; RESP 20; TEMP 98.1; O2SAT 94
[2023-09-21] MEDS: PANTOPRAZOLE 40 MG TAB PO SCH (10:45)
[2023-09-21 12:45] VITALS: BP 116/82; PULSE 67; RESP 16; TEMP 98.6; O2SAT 97
[2023-09-21] MEDS ORDERED: MET50T PO (13:32)
[2023-09-21 14:09] VITALS: BP 116/82; PULSE 67; RESP 16; TEMP 98.6; O2SAT 97
== END 2023-09-21 16:30 | disposition home or self-care (01) | DRG 280 ==
LOC: ER 11:50 → TELE 15:01 → TELE-WESTW 09-19 10:16
PROVIDERS: ADMIT Nurse Practitioner Family; ATTEND Internal Medicine
DX: I48.20 Chronic atrial fibrillation, unspecified (principal); I50.43 Acute on chronic combined systolic (congestive) and diastolic (congestive) heart failure; I21.A1 Myocardial infarction type 2; D68.69 Other thrombophilia; I47.10 Supraventricular tachycardia, unspecified; I48.92 Unspecified atrial flutter; I11.0 Hypertensive heart disease with heart failure; I25.10 Atherosclerotic heart disease of native coronary artery without angina pectoris; E87.6 Hypokalemia; I25.5 Ischemic cardiomyopathy; M17.12 Unilateral primary osteoarthritis, left knee; I73.9 Peripheral vascular disease, unspecified; I25.2 Old myocardial infarction; Z95.1 Presence of aortocoronary bypass graft; Z86.718 Personal history of other venous thrombosis and embolism; Z95.5 Presence of coronary angioplasty implant and graft
CPT/HCPCS: 36415; 71045; 73560; 74176; 80048; 80053; 80061; 80307; 81001; 83690; 83735; 83880; 84100; 84443; 84484; 84550; 85025; 85610; 93005; 93306; 93971; 96372; 96374; 96375; 96376; 99291; C9113; G0378; J0153; J1885; J2250; J2405

== ENCOUNTER 2023-10-11 10:05 | Inpatient (IN) | payer OTHER, MEDICARE, MEDICAID ==
[~2023-10-11] VITALS: Ht 190.5 cm; Wt 90.6 kg
[~2023-10-11 10:05] MED LIST changes: -CEPH500C PO; +MET50T PO; -METO-535 PO
[2023-10-11 10:49] LABS: Basophils # (auto) 0 10 ^3/uL (0-0.2); Basophils % (auto) 0.4 % (0.0-2.0); Eosinophils # (auto) 0.1 10 ^3/uL (0-0.8); Eosinophils % (auto) 1.4 % (0.0-7.0); Lymphocytes # (auto) 2.3 10 ^3/uL (0.4-5.4); Lymphocytes % (auto) 37.9 % (10.0-50.0); Mean Corpuscular Hemoglobin 26.4 pg (28.0-32.0); Mean Corpuscular Hgb Conc. 32.5 g/dL (32.0-36.0); Mean Corpuscular Volume 81.1 fL (80.0-100.0); Monocytes # (auto) 0.8 10 ^3/uL (0-1.3); Monocytes % (auto) 13.6 % (0.0-12.0); Neutrophils # (auto) 2.9 10 ^3/uL (1.6-8.6); Neutrophils % (auto) 46.7 % (37.0-80.0); Nucleated Red Blood Cells % 0.2 %; Red Blood Cells 4.56 10^6/uL (4.5-5.90); Red Cell Distribution Width 15.7 % (11.8-14.3); White Blood Cell 6.1 10^3/uL (4.4-10.8)
[2023-10-11 10:59] LABS: Alanine Aminotransferase 114 U/L (7-40); Albumin 3.7 g/dL (3.2-4.8); Alkaline Phosphatase 180 U/L (46-116); Anion Gap 8 (5-15); Aspartate Aminotransferase 62 U/L (13-40); BUN/Creatinine Ratio 21.8 (10.0-20.0); Blood Urea Nitrogen 26 mg/dL (9-23); Calcium 8.7 mg/dL (8.5-10.1); Carbon Dioxide 25 mmol/L (20-30); Chloride 110 mmol/L (98-107); Glucose 96 mg/dL (74-106); Potassium 4.3 mmol/L (3.5-5.1); Sodium 143 mmol/L (136-145)
[2023-10-11 11:00] LABS: Total Protein 6.5 g/dL (5.7-8.2)
[2023-10-11] MEDS: ENOXAPARIN SOD 100 MG/1 ML SYRINGE SC ONE (13:40)
[2023-10-11] MEDS ORDERED: MORPHINE SULFATE INJ 2 MG/ml SYRG IV PRN (16:45)
[2023-10-11] MEDS ORDERED: ACETAMINOPHEN 325 MG TAB PO PRN (16:45)
[2023-10-11] MEDS ORDERED: ALBUTEROL SULF 2.5 MG/0.5ML(0.5%) NEB SOLN NEB PRN (16:45)
[2023-10-11] MEDS ORDERED: NITROGLYCERIN 0.4 MG SL TAB SL PRN (16:45)
[2023-10-11 17:55] LABS: INR 1.74 (0.9-1.15); Partial Thromboplastin Time 30.4 SEC (24.5-34.5); Prothrombin Time 17.6 sec (9.3-11.8)
[2023-10-11 18:10] VITALS: O2SAT 96
[2023-10-11 21:13] VITALS: BP 166/97; PULSE 93; RESP 18; TEMP 97.6; O2SAT 96
[2023-10-12] VITALS (9 sets, daily range): BP systolic 101–137; BP diastolic 59–84; PULSE 61–73; RESP 14–18; TEMP 96.8–98.5; O2SAT 2–100
[2023-10-12] MEDS: FUROSEMIDE 20 MG/2 ML VIAL IV ONE (03:11)
[2023-10-12] MEDS: IOHEXOL 350 MG/ML 100ML IJ ONE ×2 (03:12→03:17)
[2023-10-12] MEDS: dilTIAZem 25 MG/5 ML VIAL IV ONE (03:37)
[2023-10-12] MEDS: MIDAZOLAM HCL 2MG/2ML 2ml VIAL (1mg/ml) IV ONE (03:52)
[2023-10-12] MEDS: MIDAZOLAM HCL 2MG/2ML 2ml VIAL (1mg/ml) ONE (03:54)
[2023-10-12] MEDS: FUROSEMIDE 20 MG/2 ML VIAL IV SCH (04:19)
[2023-10-12] MEDS: AMIODARONE 450mg/250ml AE 250 ML IV ONE (04:20)
[2023-10-12] MEDS: METOPROLOL TARTRATE 50 MG TAB PO SCH (04:20)
[2023-10-12] MEDS: AMIODARONE BOLUS KIT 100 ML IV ONE (04:20)
[2023-10-12] MEDS: APIXABAN 2.5 MG TAB PO SCH (04:20)
[2023-10-12] MEDS: SACUBITRIL-VALSARTAN 24mg/26mg TAB PO SCH (04:20)
[2023-10-12] MEDS: AMIODARONE 450mg/250ml AE 250 ML IV SCH ×2 (04:24→10:15)
[2023-10-12 09:38] LABS: Basophils # (auto) 0 10 ^3/uL (0-0.2); Lymphocytes # (auto) 1.8 10 ^3/uL (0.4-5.4); Monocytes # (auto) 0.9 10 ^3/uL (0-1.3); Nucleated Red Blood Cells % 0.1 %
[2023-10-12 09:39] LABS: Basophils % (auto) 0.5 % (0.0-2.0); Eosinophils # (auto) 0.1 10 ^3/uL (0-0.8); Eosinophils % (auto) 2.1 % (0.0-7.0); Hematocrit 37.8 % (41.0-53.0); Hemoglobin 12.2 g/dL (13.5-17.5); Mean Corpuscular Hemoglobin 26.1 pg (28.0-32.0); Mean Corpuscular Hgb Conc. 32.1 g/dL (32.0-36.0); Mean Corpuscular Volume 81.2 fL (80.0-100.0); Monocytes % (auto) 12.8 % (0.0-12.0); Neutrophils % (auto) 58.6 % (37.0-80.0); Red Blood Cells 4.66 10^6/uL (4.5-5.90); White Blood Cell 6.8 10^3/uL (4.4-10.8)
[2023-10-12 09:56] LABS: Alanine Aminotransferase 124 U/L (7-40); Albumin 3.6 g/dL (3.2-4.8); Alkaline Phosphatase 154 U/L (46-116); Anion Gap 8 (5-15); Aspartate Aminotransferase 70 U/L (13-40); BUN/Creatinine Ratio 13.9 (10.0-20.0); Blood Urea Nitrogen 15 mg/dL (9-23); Calcium 8.5 mg/dL (8.5-10.1); Carbon Dioxide 25 mmol/L (20-30); Chloride 110 mmol/L (98-107); Glucose 110 mg/dL (74-106); LDL Cholesterol 97 mg/dL (< 100); Sodium 143 mmol/L (136-145); Triglycerides 49 mg/dL (< 150)
[2023-10-12 09:57] LABS: Bilirubin, Total 0.7 mg/dL (0.2-1.0); Cholesterol 131 mg/dL (< 200); HDL Cholesterol 25 mg/dL (40-59); Total Protein 6.5 g/dL (5.7-8.2)
[2023-10-12] MEDS ORDERED: FUROSEMIDE 20 MG/2 ML VIAL IV SCH (10:00)
[2023-10-12] MEDS: MAGNESIUM OXIDE 400 MG TAB PO ONE (10:05)
[2023-10-12] MEDS: PANTOPRAZOLE 40 MG TAB PO SCH (10:09)
[2023-10-12 10:28] LABS: Magnesium 1.7 mg/dL (1.6-2.6)
[2023-10-12] MEDS: ERGOCALCIFEROL 50,000 UNIT(1.25MG) CAP PO SCH (12:36)
[2023-10-12 19:01] LABS: Urine Bacteria None Seen /hpf (None Seen)
[2023-10-12 19:31] LABS: Urine Blood 2+ /uL (Negative); Urine Clarity Clear (Clear); Urine Color Yellow (Yellow); Urine Mucus FEW (None Seen); Urine Protein, UAD 1+ (Negative); Urine Specific Gravity 1.037 (1.001-1.035); Urine Urobilinogen 12 mg/dL (Negative); Urine WBC 1 /hpf (0 - 3); Urine pH 5.5 (5.0-9.0)
[2023-10-12 19:47] LABS: Amphetamine Screen, Urine Neg (NEGATIVE); Barbiturate Scree,Urine Neg (NEGATIVE); Benzodiazephine Screen, Urine Pos (NEGATIVE); Cannabinoid Screen, Urine Neg (NEGATIVE); Cocaine Screen, Urine Neg (NEGATIVE); Opiate Scree,Urine Neg (NEGATIVE); Phencyclidine Screen, Urine Neg (NEGATIVE)
[2023-10-12 21:05] LABS: Lactic Acid w/Reflex 2.5 mmol/L (0.4-2.0)
[2023-10-12] MEDS: SODIUM CHLORIDE 0.9% 500 ML IV ONE (22:45)
[2023-10-13] VITALS (10 sets, daily range): BP systolic 114–144; BP diastolic 53–96; PULSE 57–83; RESP 15–20; TEMP 95.8–97.6; O2SAT 91–99
[2023-10-13 06:31] LABS: Chloride 108 mmol/L (98-107); Potassium 3.8 mmol/L (3.5-5.1); Sodium 140 mmol/L (136-145)
[2023-10-13 06:32] LABS: Anion Gap 10 (5-15); Calcium 8.8 mg/dL (8.7-10.4); Carbon Dioxide 22 mmol/L (20-30)
[2023-10-13 06:36] LABS: Basophils # (auto) 0.1 10 ^3/uL (0-0.2); Basophils % (auto) 0.7 % (0.0-2.0); Eosinophils # (auto) 0.1 10 ^3/uL (0-0.8); Hemoglobin 12.8 g/dL (13.5-17.5); Lymphocytes # (auto) 3.1 10 ^3/uL (0.4-5.4); Neutrophils # (auto) 4.2 10 ^3/uL (1.6-8.6); White Blood Cell 8.5 10^3/uL (4.4-10.8)
[2023-10-13 06:37] LABS: BUN/Creatinine Ratio 13.5 (10.0-20.0); Blood Urea Nitrogen 19 mg/dL (9-23); Glucose 122 mg/dL (74-106)
[2023-10-13 06:38] LABS: Eosinophils % (auto) 1.1 % (0.0-7.0); Hematocrit 40.4 % (41.0-53.0); Lymphocytes % (auto) 36.4 % (10.0-50.0); Magnesium 1.7 mg/dL (1.6-2.6); Mean Corpuscular Hemoglobin 26.3 pg (28.0-32.0); Mean Corpuscular Hgb Conc. 31.7 g/dL (32.0-36.0); Mean Corpuscular Volume 82.9 fL (80.0-100.0); Monocytes # (auto) 1.1 10 ^3/uL (0-1.3); Monocytes % (auto) 12.6 % (0.0-12.0); Neutrophils % (auto) 49.2 % (37.0-80.0); Nucleated Red Blood Cells % 0.2 %; Red Blood Cells 4.87 10^6/uL (4.5-5.90); Red Cell Distribution Width 16.1 % (11.8-14.3)
[2023-10-13 08:30] LABS: COVID19 ANTIGEN SOFIA FIA NEGATIVE (NEGATIVE)
[2023-10-13 08:34] LABS: Rapid Influenza A Positive (Negative); Rapid Influenza B Positive (Negative)
[2023-10-13 08:53] LABS: Hepatitis B Surface Antigen Negative (Negative)
[2023-10-13 09:15] LABS: Hepatitis C Antibody Negative (Negative)
[2023-10-13] MEDS: OSELTAMIVIR 75 MG CAP PO ONE (09:55)
[2023-10-13] MEDS: AMIODARONE HCL 200 MG TAB PO ONE (09:59)
[2023-10-13] MEDS: AMIODARONE HCL 200 MG TAB PO SCH (09:59)
[2023-10-13] MEDS: OSELTAMIVIR 75 MG CAP PO SCH (10:00)
[2023-10-13 11:50] LABS: Lactic Acid w/Reflex 2.4 mmol/L (0.4-2.0)
[2023-10-13] MEDS: cefTRIAXone 1GM/50ML D5W 50 ML IV SCH (12:26)
[2023-10-13 22:27] LABS: Lactic Acid w/Reflex 2.9 mmol/L (0.4-2.0)
[2023-10-14] VITALS (11 sets, daily range): BP systolic 109–141; BP diastolic 60–82; PULSE 60–89; RESP 16–19; TEMP 36.7; O2SAT 95–100
[2023-10-14] MEDS: SODIUM CHLORIDE 0.9% 500 ML IV ONE (00:15)
[2023-10-14 06:33] LABS: Basophils # (auto) 0 10 ^3/uL (0-0.2); Eosinophils # (auto) 0 10 ^3/uL (0-0.8); Eosinophils % (auto) 0.2 % (0.0-7.0); Hemoglobin 12.8 g/dL (13.5-17.5); Neutrophils # (auto) 4.7 10 ^3/uL (1.6-8.6); Nucleated Red Blood Cells % 0.3 %
[2023-10-14 06:36] LABS: Basophils % (auto) 0.3 % (0.0-2.0); Hematocrit 40.7 % (41.0-53.0); Lymphocytes # (auto) 2.2 10 ^3/uL (0.4-5.4); Lymphocytes % (auto) 28.1 % (10.0-50.0); Mean Corpuscular Hemoglobin 26.3 pg (28.0-32.0); Mean Corpuscular Hgb Conc. 31.6 g/dL (32.0-36.0); Mean Corpuscular Volume 83.2 fL (80.0-100.0); Monocytes % (auto) 12.1 % (0.0-12.0); Neutrophils % (auto) 59.3 % (37.0-80.0); Red Blood Cells 4.89 10^6/uL (4.5-5.90); Red Cell Distribution Width 16.3 % (11.8-14.3)
[2023-10-14 06:41] LABS: Anion Gap 13 (5-15); Calcium 8.6 mg/dL (8.7-10.4); Carbon Dioxide 21 mmol/L (20-30); Chloride 106 mmol/L (98-107); Potassium 3.7 mmol/L (3.5-5.1); Sodium 140 mmol/L (136-145)
[2023-10-14 06:46] LABS: Glucose 89 mg/dL (74-106)
[2023-10-14 06:47] LABS: BUN/Creatinine Ratio 15.2 (10.0-20.0); Blood Urea Nitrogen 19 mg/dL (9-23)
[2023-10-14 06:48] LABS: Magnesium 1.7 mg/dL (1.6-2.6)
[2023-10-14] MEDS: FUROSEMIDE 20 MG/2 ML VIAL IV SCH (10:18)
[2023-10-15] VITALS (10 sets, daily range): BP systolic 108–135; BP diastolic 72–85; PULSE 61–93; RESP 18–20; TEMP 36.7; O2SAT 92–98
[2023-10-15 07:32] LABS: Basophils # (auto) 0.1 10 ^3/uL (0-0.2); Eosinophils # (auto) 0.2 10 ^3/uL (0-0.8); Neutrophils # (auto) 4.7 10 ^3/uL (1.6-8.6)
[2023-10-15 07:34] LABS: Basophils % (auto) 0.9 % (0.0-2.0); Eosinophils % (auto) 1.9 % (0.0-7.0); Hemoglobin 12.6 g/dL (13.5-17.5); Lymphocytes # (auto) 2.4 10 ^3/uL (0.4-5.4); Lymphocytes % (auto) 29.1 % (10.0-50.0); Mean Corpuscular Hemoglobin 26.1 pg (28.0-32.0); Mean Corpuscular Hgb Conc. 32.3 g/dL (32.0-36.0); Mean Corpuscular Volume 80.9 fL (80.0-100.0); Monocytes % (auto) 12.2 % (0.0-12.0); Neutrophils % (auto) 55.9 % (37.0-80.0); Nucleated Red Blood Cells % 0.3 %; Red Blood Cells 4.82 10^6/uL (4.5-5.90); Red Cell Distribution Width 16.1 % (11.8-14.3); White Blood Cell 8.3 10^3/uL (4.4-10.8)
[2023-10-15 07:39] LABS: Anion Gap 11 (5-15); Carbon Dioxide 25 mmol/L (20-30); Chloride 106 mmol/L (98-107); Potassium 3.3 mmol/L (3.5-5.1); Sodium 142 mmol/L (136-145)
[2023-10-15 07:40] LABS: Calcium 8.5 mg/dL (8.7-10.4)
[2023-10-15 07:45] LABS: BUN/Creatinine Ratio 15.9 (10.0-20.0); Blood Urea Nitrogen 21 mg/dL (9-23); Glucose 93 mg/dL (74-106); Magnesium 1.4 mg/dL (1.6-2.6)
[2023-10-15] MEDS: SPIRONOLACTONE 25 MG TAB PO SCH (09:06)
[2023-10-15] MEDS: MAGNESIUM SULFATE 1GM/100ML 100 ML IV SCH ×2 (13:01→15:28)
[2023-10-15] MEDS: POTASSIUM CHL 20 Meq TABLET PO ONE (13:01)
[2023-10-16] VITALS (7 sets, daily range): BP systolic 110–135; BP diastolic 65–77; PULSE 65–92; RESP 14–18; TEMP 97.5–98.3; O2SAT 95–98
[2023-10-16 06:45] LABS: Chloride 106 mmol/L (98-107); Potassium 3.4 mmol/L (3.5-5.1); Sodium 140 mmol/L (136-145)
[2023-10-16 06:46] LABS: Anion Gap 6 (5-15); Carbon Dioxide 28 mmol/L (20-30)
[2023-10-16 06:47] LABS: Calcium 8.2 mg/dL (8.7-10.4)
[2023-10-16 06:51] LABS: Glucose 87 mg/dL (74-106)
[2023-10-16 06:52] LABS: BUN/Creatinine Ratio 15.7 (10.0-20.0); Blood Urea Nitrogen 17 mg/dL (9-23); Magnesium 1.7 mg/dL (1.6-2.6)
[2023-10-16 07:00] LABS: Basophils # (auto) 0 10 ^3/uL (0-0.2); Basophils % (auto) 0.6 % (0.0-2.0); Eosinophils # (auto) 0.2 10 ^3/uL (0-0.8); Eosinophils % (auto) 2.9 % (0.0-7.0); Hematocrit 36.8 % (41.0-53.0); Hemoglobin 11.9 g/dL (13.5-17.5); Lymphocytes # (auto) 2.4 10 ^3/uL (0.4-5.4); Lymphocytes % (auto) 34.3 % (10.0-50.0); Mean Corpuscular Hgb Conc. 32.4 g/dL (32.0-36.0); Mean Corpuscular Volume 80.2 fL (80.0-100.0); Monocytes % (auto) 14.4 % (0.0-12.0); Neutrophils # (auto) 3.4 10 ^3/uL (1.6-8.6); Neutrophils % (auto) 47.8 % (37.0-80.0); Nucleated Red Blood Cells % 0.2 %; Red Blood Cells 4.59 10^6/uL (4.5-5.90); White Blood Cell 7.1 10^3/uL (4.4-10.8)
[2023-10-16 09:12] LABS: COVID19 ANTIGEN SOFIA FIA NEGATIVE (NEGATIVE)
[2023-10-16] MEDS: POTASSIUM EFFERVESENT TAB 25 MEQ PO ONE (10:48)
[2023-10-16] MEDS ORDERED: POTA-36 PO (12:12)
[2023-10-16] MEDS ORDERED: OSEL75CA17 PO ×2 (12:12→13:48)
[2023-10-16] MEDS ORDERED: FURO40TA4 PO ×2 (12:12→13:48)
[2023-10-16] MEDS ORDERED: SPIR25TA8 PO ×2 (12:12→13:48)
[2023-10-16] MEDS ORDERED: METO25TA93 PO ×2 (12:14→13:48)
[2023-10-16] MEDS ORDERED: AMIO200T33 PO ×2 (12:15→13:48)
[2023-10-16] MEDS ORDERED: POTA-228 PO (13:48)
[2023-10-16] MEDS: MAGNESIUM OXIDE 400 MG TAB PO ONE (15:48)
== END 2023-10-16 16:00 | disposition home or self-care (01) | DRG 871 ==
LOC: ER 10:05 → TELE-WESTW 16:43 → TELE 16:43 → TELE-WESTW 10-12 05:00
PROVIDERS: ADMIT Internal Medicine; ATTEND Internal Medicine
DX: A41.9 Sepsis, unspecified organism (principal); I21.A1 Myocardial infarction type 2; I50.23 Acute on chronic systolic (congestive) heart failure; E87.20 Acidosis, unspecified; I48.20 Chronic atrial fibrillation, unspecified; B19.10 Unspecified viral hepatitis B without hepatic coma; J10.1 Influenza due to other identified influenza virus with other respiratory manifestations; I11.0 Hypertensive heart disease with heart failure; I25.10 Atherosclerotic heart disease of native coronary artery without angina pectoris; Z20.822 Contact with and (suspected) exposure to COVID-19; I73.9 Peripheral vascular disease, unspecified; R74.01 Elevation of levels of liver transaminase levels; B19.20 Unspecified viral hepatitis C without hepatic coma; E87.6 Hypokalemia; E83.42 Hypomagnesemia; Z86.718 Personal history of other venous thrombosis and embolism; Z86.711 Personal history of pulmonary embolism; Z95.1 Presence of aortocoronary bypass graft; I25.2 Old myocardial infarction; Z95.5 Presence of coronary angioplasty implant and graft; Z79.01 Long term (current) use of anticoagulants
CPT/HCPCS: 36415; 71045; 71275; 76705; 80048; 80053; 80061; 80307; 81001; 82306; 83036; 83605; 83735; 83880; 84484; 85025; 85379; 85610; 85730; 86803; 87040; 87081; 87086; 87340; 87426; 87804; 93005; 93925; 93970; 96372; G0378; J2250

== ENCOUNTER → 2023-12-27 | Outpatient (CLI) | payer MEDICARE, MEDICAID ==
[~2023-12-27] MED LIST changes: +AMIO200T33 PO; +FURO40TA4 PO; -MET50T PO; +METO25TA93 PO; +OSEL75CA17 PO; +POTA-228 PO; +SPIR25TA8 PO
== END | disposition home or self-care (01) ==
LOC: Rad HDHVI 14:52
PROVIDERS: ATTEND Internal Medicine Cardiovascular Disease
DX: I35.1 Nonrheumatic aortic (valve) insufficiency (principal); I11.9 Hypertensive heart disease without heart failure; R06.02 Shortness of breath
CPT/HCPCS: 93306

== ENCOUNTER → 2024-01-16 | Outpatient (CLI) | payer MEDICARE, OTHER | END | disposition home or self-care (01) | LOC: Rad HDHVI 12:03 | PROVIDERS: ATTEND Internal Medicine Cardiovascular Disease | DX: I82.409 Acute embolism and thrombosis of unspecified deep veins of unspecified lower extremity (principal) | CPT/HCPCS: 93925 ==